=== PATIENT | female | born 1980 | race Caucasian/White ===

== ENCOUNTER 2020-01-12 14:36 | Emergency (ER) | payer OTHER ==
[2020-01-12 15:05] VITALS: BP 107/84
--- NOTE | 2020-01-12 15:27 | UC ---
General HPI - HPI Summary HPI Summary: 39yo female presenting with "severe" body aches, nausea, and fatigue x7 days. Also notes "sparse dry cough." Notes sob but that is usual for her anxiety. Denies chest pain and difficulty breathing. Denies nasal congestion and sore throat. Notes abdominal pain at times but states she has gallstones and endometriosis and pain is not much different from those symptoms. Denies pain currently. Notes urinary frequency for the last month. Denies dysuria, hematuria , and abnormal discharge. Notes mild decrease in appetite. Denies fever, stating highest temp has been 99. Taking tylenol and ibuprofen with temporary relief of symptoms. Denies known ill contacts but voices concern for both covid and the flu "since family members all work in retail." - History of Current Complaint Stated Complaint: BODY ACHES Hx Obtained From: Patient Hx Last Menstrual Period: "Maybe, like, two weeks ago." Pain Intensity: 6 - Allergy/Home Medications Allergies/Adverse Reactions: Allergies Allergy/AdvReac Type Severity Reaction Status Date / Time latex Allergy Rash Verified 01/12/20 14:50 Home Medications: Home Medications Acetaminophen [Acetaminophen Extra Strength] 1,000 mg PO Q6H PRN 01/12/20 [ History Confirmed 01/12/20] Fluoxetine HCl [Prozac] 40 mg PO DAILY 01/12/20 [History Confirmed 01/12/20] Ibuprofen TAB* [Advil TAB*] 600 mg PO Q6H PRN 01/12/20 [History Confirmed ] Methylphenidate HCl [Concerta] 27 mg PO DAILY 01/12/20 [History Confirmed ] cloNIDine TAB* [Catapres 0.1 MG TAB*] 0.3 mg PO BEDTIME 01/12/20 [History Confirmed 01/12/20] PMH/Surg Hx/FS Hx/Imm Hx GI/ History: Gall Bladder Disease Psychological History: Anxiety - Surgical History Surgical History: Yes Surgery Procedure, Year, and Place: Endometriosis Laporoscopies x 8 - Family History Known Family History: Positive: None - Social History Alcohol Use: Weekly Substance Use Type: Marijuana Substance Use Comment - Amount & Last Used: Weekly Smoking Status (MU): Light Every Day Tobacco Smoker Type: Cigarettes Amount Used/How Often: 1/4 PPD Length of Time of Smoking/Using Tobacco: Since Age 12 Household Exposure Type: Cigarettes Review of Systems All Other Systems Reviewed And Are Negative: Yes Constitutional: Positive: Fatigue Respiratory: Positive: Shortness Of Breath - "because of anxiety", Cough - "sparse" Cardiovascular: Positive: Negative Gastrointestinal: Positive: Abdominal Pain, Nausea. Negative: Vomiting, Diarrhea Genitourinary: Positive: Frequency. Negative: Dysuria, Hematuria, Vaginal/ Penile Discharge Musculoskeletal: Positive: Myalgia Neurological/Mental Status: Positive: Negative Psychological: Positive: Anxious Physical Exam - Summary Physical Exam Summary: Vital Signs Reviewed: Yes A+Ox3, no distress, well-appearing Eyes: Conjunctiva Clear ENT: Hearing grossly normal, TM x 2 clear, moist, uvula midline, no exudate, no erythema Neck: Positive: Supple, no LAD Respiratory: Positive: No respiratory distress, No accessory muscle use + CTA throughout no w/r Cardiovascular: RRR nl s1, s2 no m/r Abd: soft + BS, +mild generalized tenderness, no guarding Musculoskeletal Exam: LOMBARDO x 4 without difficulty Neurological: Positive: Alert Psychological: Positive: age appropriate behavior Skin: Positive: no rash, no ecchymosis Vital Signs: Initial Vital Signs Temp 98.2 F 01/12/20 14:53 Pulse 96 01/12/20 14:53 Resp 16 01/12/20 14:53 BP 107/84 01/12/20 14:53 Pulse Ox 99 01/12/20 14:53 Lab Results 01/12/20 01/12/20 01/12/20 Range/Units 15:27 15:27 15:29 POC Urine Color Yellow POC Urine Clarity Clear POC Urine pH 5.5 (5-9) POC Ur Specif [place] 1.025 (1.010-1.030) POC Urine Protein Negative (Negative) POC Ur Glucose (UA) Negative (Negative) POC Urine Ketones Negative (Negative) POC Urine Blood 1+ A (Negative) POC Urine Nitrite Negative (Negative) POC Urine Bilirubin Negative (Negative) POC Urine Urobilinogen 0.2 (Negative) POC U Leukocyte Esteras Negative (Negative) POC Ur Test Negative (Negative) Influenza A (Rapid) Negative (Negative) Influenza B (Rapid) Negative (Negative) Course/Dx - Course Course Of Treatment: Flu test negative. UA 1+ blood. Negative . VSS and PE findings WNL. I discussed flu and urine results with the patient and informed her that she would receive the covid19 results within the next 3-5 days. I discussed self quarantining until results have been received and she is advised otherwise. Instructed to go to the ED if she experiences new or worsening symptoms. Patient voiced understanding and agreed with treatment plan. All questions answered to the best of my abilities. - Diagnoses Provider Diagnosis: Nausea, Myalgia, Abdominal tenderness, generalized Discharge ED - Sign-Out/Discharge Documenting (check all that apply): Patient Departure All imaging exams completed and their final reports reviewed: No Studies - Discharge Plan Condition: Stable Disposition: HOME Patient Education Materials: Viral Syndrome (ED), Acute Abdominal Pain (ED) Forms: COVID-19 Tested & Isolation Referrals: No Primary Care Phys,NOPCP [Primary Care Provider] - Additional Instructions: As discussed, your flu test was negative today. You received testing for covid 19 today. You will be notified of the results within 3-5 days. You need to self-isolate for the next 14 days unless otherwise advised by a healthcare provider. This means staying home and no contact with anyone who lives with you. You should not share your bedroom or bathroom. Food should be left outside your door for you to take once the other person has walked away. You may continue with tylenol and ibuprofen. Increase your fluid intake. Go to the nearest emergency room if you experience new or worsening symptoms. - Billing Disposition and Condition Condition: STABLE Disposition: Home
[2020-01-12 15:39] LABS: Influenza A Molecular Negative (Negative); Influenza B Molecular Negative (Negative)
== END 2020-01-12 15:56 | disposition home or self-care (01) ==
LOC: UCCORT 14:36
DX: R11.0 Nausea (principal); M79.10 Myalgia, unspecified site; R10.817 Generalized abdominal tenderness; R05 Cough; R53.83 Other fatigue; Z20.828 Contact with and (suspected) exposure to other viral communicable diseases; Z32.02 Encounter for pregnancy test, result negative; Z91.040 Latex allergy status; F17.210 Nicotine dependence, cigarettes, uncomplicated
CPT/HCPCS: 81003; 84702; 87635; 99201; G0463; G2023

== ENCOUNTER 2020-09-19 04:16 | Observation (INO) ==
[2020-09-19] MEDS ORDERED: NS 0.9% 1000 ml BAG 1,000 ML IV.FLUID IV ONE (04:41)
[2020-09-19] MEDS ORDERED: Lorazepam PYXIS KEY PRN (04:42)
[2020-09-19] MEDS ORDERED: LORazepam 2 mg VIAL 1 ml IV PUSH ONE (04:42)
[2020-09-19 05:27] LABS: ABS Basophils 0.1 10^3/ul (0-0.2); ABS Eosinophils 0.1 10^3/ul (0-0.6); ABS Lymphocytes 2.7 10^3/ul (1.0-4.8); ABS Monocytes 0.8 10^3/ul (0-0.8); ABS Neutrophils 3.5 10^3/ul (1.5-7.7); Eosinophil % 1.9 %; Hematocrit 40 % (35-47); Hemoglobin 13.4 g/dL (12.0-16.0); Lymphocyte % 37.3 %; Mean Corpuscular HGB Conc 34 g/dL (31-36); Mean Corpuscular Hemoglobin 28 pg (27-31); Mean Corpuscular Volume 83 fL (80-97); Mean Platelet Volume 7.7 fL (7.4-10.4); Platelet Count 308 10^3/uL (150-450); Red Blood Count 4.79 10^6 /uL (3.70-4.87); Red Cell Distribution Width 14 % (10-15); White Blood Count 7.2 10^3/uL (3.5-10.8)
[2020-09-19 05:42] LABS: Activated Partial Thrombo Time 27.1 seconds (26.0-38.0); INR 0.92 (0.82-1.09)
[2020-09-19 05:46] LABS: Albumin 4.3 g/dL (3.2-5.2); Albumin/Globulin Ratio 1.5 (1-3); BUN/Creatinine Ratio 18.2 (8-20); C Reactive Protein 3.3 mg/L (<8.01); EGFR African American 100.5 (>60); Globulin 2.8 g/dL (2-4); Potassium 3.9 mmol/L (3.5-5.0); Total Bilirubin 0.3 mg/dL (0.2-1.0); Total Protein 7.1 g/dL (6.4-8.9)
[2020-09-19] MEDS ORDERED: Morphine 4 MG/ML VIAL (1 ml) IV ONE (06:29)
[2020-09-19 06:36] LABS: Body Fluid Source Cerebral Spinal
[2020-09-19 06:49] LABS: CSF Glucose 71 mg/dL (40-70)
[2020-09-19] MEDS ORDERED: diPHENhydraMINE IV 50 MG/ML 1 ml VIAL (BENADRYL) SLOW PUSH ONE (07:04)
[2020-09-19 08:15] LABS: Body Fluid Mono 10 %
[2020-09-19] MEDS ORDERED: NS 0.9% IVPB ONE (10:00)
[2020-09-19] MEDS ORDERED: ACYCLOVIR IVPB ONE (10:00)
[2020-09-19] MEDS: Ondansetron 4 mg VIAL 2 MG/ML 2 ml VIAL IV PRN ×2 (12:25→21:03)
[2020-09-19] MEDS ORDERED: Acyclovir IV 500 MG/10 ML 100 ML VIAL (500 MG) IVPB SCH (18:00)
[2020-09-19] MEDS: NS 0.9% IVPB SCH (18:17)
[2020-09-19] MEDS: ACYCLOVIR IVPB SCH (18:17)
[2020-09-19] MEDS ORDERED: Morphine 2 MG/ML SYRINGE IV ONE (23:55)
[2020-09-20] MEDS: NS 0.9% IVPB SCH ×2 (02:12→10:36)
[2020-09-20] MEDS: ACYCLOVIR IVPB SCH ×2 (02:12→10:36)
[2020-09-20 05:40] LABS: ABS Basophils 0.1 10^3/ul (0-0.2); ABS Eosinophils 0.1 10^3/ul (0-0.6); ABS Lymphocytes 1.6 10^3/ul (1.0-4.8); ABS Monocytes 0.5 10^3/ul (0-0.8); Eosinophil % 3.5 %; Hematocrit 37 % (35-47); Hemoglobin 12.4 g/dL (12.0-16.0); Lymphocyte % 36.7 %; Mean Corpuscular HGB Conc 34 g/dL (31-36); Mean Corpuscular Hemoglobin 28 pg (27-31); Mean Corpuscular Volume 84 fL (80-97); Mean Platelet Volume 7.6 fL (7.4-10.4); Platelet Count 258 10^3/uL (150-450); Red Blood Count 4.41 10^6 /uL (3.70-4.87); Red Cell Distribution Width 14 % (10-15); White Blood Count 4.3 10^3/uL (3.5-10.8)
[2020-09-20 05:54] LABS: Calcium 8.7 mg/dL (8.6-10.3); EGFR African American 89.6 (>60); EGFR Non-African American 74.1 (>60); Potassium 4.9 mmol/L (3.5-5.0)
[2020-09-20] MEDS: Ondansetron 4 mg VIAL 2 MG/ML 2 ml VIAL IV PRN (07:19)
[2020-09-20] MEDS ORDERED: Methylphenidate ER 18 mg TAB PO SCH (09:00)
[2020-09-20] MEDS ORDERED: DULoxetine DR 60 mg CAP PO SCH (09:00)
[2020-09-20] MEDS ORDERED: Prochlorperazine 5 mg/ml 2 ml VIAL (10 mg) IV PRN (12:31)
[2020-09-20] MEDS ORDERED: NS 0.9% 500 ml BAG 500 ML IV SCH (14:00)
[2020-09-20 16:20] VITALS: BP 100/60
[2020-09-20 19:32] LABS: HSV 1 PCR, Blood Negative (Negative); HSV 2 PCR, Blood Negative (Negative)
== END 2020-09-20 17:10 | disposition home or self-care (01) ==
LOC: ED 04:16 → MED 04:16
PROVIDERS: ADMIT Student in an Organized Health Care Education/Training Program; ATTEND Internal Medicine